=== PATIENT | male | born 1940 | race Hispanic/Latino ===

== ENCOUNTER 2018-03-21 00:16 | Emergency (ER) | payer MEDICARE, OTHER ==
[2018-03-21 00:17] VITALS: BMI 21.9
[2018-03-21 02:02] LABS: BASO % 0.3 % (0.0-2.0); EOS # 0.1 K/uL (0.0-0.7); EOS % 1.9 % (0.0-4.0); HEMOGLOBIN 14.6 g/dL (12.0-18.0); LYMPH # 1.7 K/uL (1.0-4.3); LYMPH % 27.7 % (20.0-40.0); MEAN CELL VOLUME 94.7 fl (80.0-94.0); MEAN CORPUSCULAR HEMOGLOBIN 31.7 pg (27.0-31.0); MEAN CORPUSCULAR HGB CONC 33.4 g/dL (33.0-37.0); MEAN PLATELET VOLUME 9.1 fl (7.2-11.7); MONO # 0.5 K/uL (0.0-0.8); NEUT # 3.8 K/uL (1.8-7.0); NEUT % 62.1 % (50.0-75.0); NRBC % 0.1 % (0.0-0.0); RBC 4.62 Mil/uL (4.40-5.90); WHITE BLOOD COUNT 6.1 K/uL (4.8-10.8)
[2018-03-21 02:08] LABS: BLOOD UREA NITROGEN 23 mg/dl (9-20); CALCIUM 9.2 mg/dL (8.4-10.2); GFR NON-AFRICAN AMERICAN > 60
[2018-03-21 02:11] LABS: ACETAMINOPHEN < 10.0 ug/ml (10.0-30.0); SALICYLATE < 1.0 mg/dl
--- NOTE | 2018-03-21 03:41 | ED PDOC ---
HPI: Psych/Substance Abuse Time Seen by Provider: 03/21/18 00:33 Chief Complaint (Nursing): Psychiatric Evaluation ED Caveat: Dementia History Per: Patient, EMS Additional Complaint(s): Patient brought from al[place] for psychiatric evaluation. Patient admits that he became confrontational with staff members and other alf patients, states that he was calling some names but denies that he was physically abusive. Denies suicidal or homicidal ideation. Past Medical History Reviewed: Historical Data, Nursing Documentation, Vital Signs Vital Signs: Last Vital Signs Temp 97.6 F 03/21/18 00:18 Pulse 82 03/21/18 00:18 Resp 18 03/21/18 00:18 BP 121/82 03/21/18 00:18 Pulse Ox 100 03/21/18 00:18 - Medical History PMH: Anxiety, Arthritis (knees; fx of l leg but denies surgery; shoulder), CHF, COPD, Dementia, Depression, Emphysema, Fractures (left knee, left leg), Hepa titis (C), HTN, Hypothyroidism, Pneumonia, Rheumatoid Arthritis Denies: Alzheimer's Disease, Anemia, Asthma, Atrial Fibrillation, Bipolar Disorder, Bronchitis, Cardia Arrhythmia, Crohn's Disease, Diabetes, Diverticulitis, Fibromyalgia, Gastrointestinal Ulcer, Gall Bladder Disease, HIV, Hypercholesterolemia, Hyperthyroidism, Kidney Stones, Migraine, Mitral Valve Prolapse, Multiple Sclerosis, Osteoporosis, Pancreatitis, Paranoia, Parkinson's Disease, Peripheral Edema, Post Traumatic Stress Disorder, Pulmonary Embolism, Chronic Kidney Disease, Schizophrenia, Seizures, Sickle Cell Disease, Sexually Transmitted Disease, Sleep Apnea, TIA - Surgical History Surgical History: Pacemaker Denies: Appendectomy, CABG, Carotid Endarterectomy, Cholecystectomy, Coronary Stent, Tonsillectomy - Family History Family History: States: Unknown Family Hx - Immunization History Hx Tetanus Toxoid Vaccination: No Hx Influenza Vaccination: No Hx Pneumococcal Vaccination: No - Home Medications Home Medications: Ambulatory Orders Medication Instructions Recorded ALPRAZolam [Xanax] 0.25 mg PO BID tab 01/23/17 Acetaminophen [Tylenol 325mg tab] 650 mg PO Q6 PRN tab 05/08/17 Albuterol/Ipratropium [Duoneb 3 3 ml IH RQ6 neb 05/08/17 mg/0.5 mg (3 ml) UD] Donepezil [Aricept] 20 mg PO HS tab 05/08/17 Escitalopram [Lexapro] 5 mg PO DAILY tab 05/08/17 Levothyroxine [Synthroid] 50 mcg PO 0630 tab 05/08/17 Magnesium Hydroxide [Milk Of 30 ml PO DAILY PRN udc 05/08/17 Magnesia] Mupirocin 2% Nasal [Bactroban 2% 0.5 gm JESSICA BID tube 05/08/17 Nasal] Pantoprazole [Protonix EC Tab] 40 mg PO DAILY ect 05/08/17 risperiDONE [RisperDAL Tab] 0.5 mg PO HS tab 05/08/17 - Allergies Allergies/Adverse Reactions: Allergies Allergy/AdvReac Type Severity Reaction Status Date / Time No Known Allergies Allergy Verified 03/21/18 00:18 Review of Systems Review Of Systems: ROS cannot be obtained secondary to pt's inabilty to answer questions. Physical Exam - Reviewed Nursing Documentation Reviewed: Yes Vital Signs Reviewed: Yes - Physical Exam Appears: Positive for: Well, Non-toxic, No Acute Distress Head Exam: Positive for: ATRAUMATIC, NORMOCEPHALIC. Negative for: NORMAL INSPECTION (Forehead Tumor) Skin: Positive for: Normal Color, Warm, DRY Eye Exam: Positive for: EOMI, Normal appearance, PERRL ENT: Positive for: Normal ENT Inspection Neck: Positive for: Normal, Painless ROM Cardiovascular/Chest: Positive for: Regular Rate, Rhythm Respiratory: Positive for: CNT, Normal Breath Sounds Gastrointestinal/Abdominal: Positive for: Normal Exam, Soft. Negative for: Tenderness Back: Positive for: Normal Inspection Extremity: Positive for: Normal ROM Neurologic/Psych: Positive for: Alert, well blower II-XII, Oriented, Gait (Steady). Negative for: Motor/Sensory Deficits, Aphasia - Laboratory Results Result Diagrams: 03/21/18 01:41 03/21/18 01:41 - ECG O2 Sat by Pulse Oximetry: 100 Pulse Ox Interpretation: Normal Medical Decision Making Medical Decision Makin Patient presenting for psych eval after agitated episode in alf --Patient is currently calm, cooperative --Does not pose danger to himself or others at this time --Will get crisis eval 330 Patient is cleared by Crisis to return to [place] Diagnosis: dementia with behavioral disturbance by Dr. Medel Disposition - Clinical Impression Clinical Impression: Dementia with aggressive behavior - Patient ED Disposition Is Patient to be Admitted: No - Disposition Disposition: Nursing Home Care Hospital Disposition Time: :30 Condition: STABLE Instructions: Dementia (DC) Forms: [employer] ([place])
[2018-03-21 04:46] LABS: SQUAMOUS EPITHIAL < 1 /hpf (0-5); URINE BILIRUBIN NEGATIVE (NEGATIVE); URINE BLOOD NEGATIVE (NEGATIVE); URINE CLARITY SLIGHTY-CLOUDY (Clear); URINE COLOR YELLOW (YELLOW); URINE GLUCOSE (UA) NEG (Normal); URINE LEUKOCYTE ESTERASE NEG Leu/uL (Negative); URINE PROTEIN NEGATIVE (NEGATIVE); URINE UROBILINOGEN 0.2-1.0 mg/dL (0.2-1.0)
[2018-03-21 04:59] LABS: BARBITURATES, UR NEGATIVE (NEGATIVE); BENZODIAZEPINES, UR NEGATIVE (NEGATIVE); OPIATES, UR NEGATIVE (NEGATIVE); PHENCYCLIDINE, UR NEGATIVE (NEGATIVE)
[2018-03-21 07:25] VITALS: BP 120/70; PULSE 76; RESP 20; TEMP 98; O2SAT 98
--- NOTE | 2018-03-21 17:33 | CARD ---
APPROVED REPORT Date of service: 03/21/2018 EKG Measurement Heart [id number] <Conclusion> Normal sinus rhythm Left axis deviation Septal infarct, age undetermined Abnormal ECG
== END 2018-03-21 07:28 | disposition home or self-care (01) ==
LOC: H.ER 00:16
DX: F03.91 Unspecified dementia, unspecified severity, with behavioral disturbance (principal); Z95.0 Presence of cardiac pacemaker; Z00.8 Encounter for other general examination
CPT/HCPCS: 80048; 81003; 85025; 87390; 93005; 99284; G0480